=== PATIENT | male | born 1960 | race Caucasian/White ===

== ENCOUNTER 2019-07-14 15:11 | Inpatient (IN) | payer OTHER ==
[~2019-07-14] VITALS: Ht 172.7 cm; Wt 79.4 kg
[2019-07-14 15:23] VITALS: Ht 172.7 cm; Wt 79.4 kg
--- NOTE | 2019-07-14 15:28 | NUR ---
AGENCY DOCUMENTATION DONE BY Staff Name/Title - : ASTER MOLINA JR/[employer] User ID - : [id number] Agency Name - : [employer] Time Documented - From - : 699 To - : 1929
--- NOTE | 2019-07-14 15:29 | NUR ---
ASSUMED PATIENT CAER, NURSING ASSESSMENT COMPLETED.
[2019-07-14 16:05] LABS: BASOPHIL % 0.3 % (0-2); PLATELET COUNT 275 x10^3mcL (130-400); RED CELL DISTRIBUTION WIDTH 13.4 % (11.5-14.5)
[2019-07-14 16:17] LABS: CALCIUM 8.7 mg/dL (8.5-10.1); CHLORIDE SERUM 105 mmol/L (98-107); CREATININE SERUM 0.8 mg/dL (0.7-1.3); GFR1 > 60 mL/min; GLUCOSE SERUM 101 mg/dL (74-106); SODIUM SERUM 141 mmol/L (136-145)
[2019-07-14 16:21] LABS: ALBUMIN 3.7 g/dL (3.4-5.0); ALKALINE PHOSPHATASE 64 U/L (46-116); ALT/SGPT 22 U/L (16-63); AST/SGOT 16 U/L (15-37); BILIRUBIN TOTAL 0.2 mg/dL (0.20-1.00); HDL CHOLESTEROL 38 mg/dL (40-60); LIPASE 75 IU/L (73-393); TOTAL PROTEIN, SERUM 7.7 g/dL (6.4-8.2); TRIGLYCERIDES 47 mg/dL (<150)
[2019-07-14 16:22] LABS: CHOLESTEROL 103 mg/dL (<200); CHOLESTEROL/HDL RATIO 2.7
[2019-07-14 16:29] LABS: FREE T4 1.14 ng/dL (0.76-1.46); FREE THYROXINE INDEX 2.5 ug/dL (1.4-4.5); T4(THYROXINE) 7.1 ug/dL (4.7-13.3)
[2019-07-14 16:30] LABS: T3 TOTAL 1.21 ng/mL
[2019-07-14 17:19] LABS: microscopic required? NO
[2019-07-14 17:33] LABS: UA SPECIFIC GRAVITY 1.015 (1.005-1.035); urine erythrocyte NEGATIVE (NEGATIVE)
--- NOTE | 2019-07-14 17:35 | NUR ---
DISPO AND MEDICAL DECISION MAKING, INPATIENT ADMISSION FOR FURTHER MANAGEMENT. PATIENT CARE, REPORT ENDORSED TO JENNIFER, CONTINUITY OF CARE ENDORSED. PATIENT UPDATED ACCORDINGLY.
[2019-07-14 18:05] VITALS: BP 130/89
--- NOTE | 2019-07-14 18:06 | NUR ---
RECEIVED TELEPHONE ORDER FROM DR STOKES FOR ECHOCARDIOGRAM AND ALIYA SCAN TOMORROW 07/15/19 AT 12NOON. NPO FOR BREAKFAST AND NO CAFFEINE DIET.
--- NOTE | 2019-07-14 18:08 | NUR ---
RECEIVED PT FROM ED VIA JONELLE. ORIENTED PT TO ROOM AND SURROUNDINGS. IV NOTED TO RAC PATENT AND INTACT. TELE 12 PLACED ON PT READING SR. INSTRUCTED PT ON THE USE OF CALL LIGHT FOR ASSISTANCE. ENDORSED PT TO PRIMARY NURSE JENNIFER
--- NOTE | 2019-07-14 18:43 | NUR ---
RECEIVED PATIENT FROM ER VIA GUERNEY. PATIENT IS AOX4 , TELE 12 SR 82, MODERATE PULSES NO EDEMA, CTA ON BLF, 100% ON ROOM AIR, C/O CHEST PAIN RADIATING TO L ARM 7/10. PATIENT COMFORTABLE AND VERBALIZED PAIN IS TOLERABLE. WAS LAST MEDICATED AT ER ,MORPHINE 1558PM. ACTIVE BS, VOIDS WITH NO DYSURIA, SKIN DRY AND INTACT, FULL ROM, IV AT RAC . 2 GUARDS AT BEDSIDE. CALL LIGHT WITHIN REACH. BED AT LOWEST POSITION.
--- NOTE | 2019-07-14 19:19 | NUR ---
ENDORSE PATIENT TO [employer]ER NURSE ROS
--- NOTE | 2019-07-14 19:47 | NUR ---
RECEIVED PATIENT IN BED AWAKE, ALERT AND ORIENTED WITH NO C/O CHEST DISCOMFORT AT THIS TIME. BREATHING EASY AND NONLABOR SATTING AT 100% RA. TELE#12 NSR ON MONITOR. ABDOMEN ROUND AND NONTENDER WITH ACTIVE BOWEL SOUNDS. HEPLOCKED TO RAC INTACT. WILL CONTINUE TO MONITOR. CIM OFFICERS AT BEDSIDE.
[2019-07-14 19:54] VITALS: BP 123/82
--- NOTE | 2019-07-14 21:42 | NUR ---
C/O CHESTPAIN AT SCALE OF 8/10 PER PATIENT, MORPHINE 2MG IVP GIVEN PRESCRIBED. WILL CONTINUE TO MONITOR.
--- NOTE | 2019-07-14 22:25 | NUR ---
RELIEF NOTED PER PATIENT AFTER PAIN MEDS WAS GIVEN.
--- NOTE | 2019-07-15 01:41 | NUR ---
APPEAR TO BE SLEEPING THIS TIME, BREATHING EASY AND NOLABOR. CIM OFFICERS AT BEDSIDE.
--- NOTE | 2019-07-15 05:04 | NUR ---
AWAKE C/O CHESTPAIN X2 THE ENTIRE SHIFT AND MEDICATED PRESCRIBED. ALL NEEDS ATTENDED. KEPT ON NPO FOR SCHEDULED FOR STRESS TEST TODAY. WILL ENDORSE CONTINOUS CARE TO AM SHIFT.
[2019-07-15 05:37] VITALS: BP 100/70
[2019-07-15 06:39] LABS: CALCIUM 8.3 mg/dL (8.5-10.1); CARBON DIOXIDE 27.5 mmol/L (21-32); CHLORIDE SERUM 105 mmol/L (98-107); CREATININE SERUM 0.9 mg/dL (0.7-1.3); GFR1 > 60 mL/min; GLUCOSE SERUM 84 mg/dL (74-106); POTASSIUM SERUM 4.2 mmol/L (3.5-5.1); SODIUM SERUM 141 mmol/L (136-145)
[2019-07-15 06:46] LABS: BASOPHIL % 0.4 % (0-2); PLATELET COUNT 236 x10^3mcL (130-400); RED CELL DISTRIBUTION WIDTH 13.8 % (11.5-14.5)
--- NOTE | 2019-07-15 07:15 | NUR ---
RECEIVED PT RESTING IN BED WITH NO C/O ANY DISTRESS. A/O X4. GUARDS AT BEDSIDE. PT NPO AT THIS TIME FOR STRESS TEST PROCEDURE AT 1000. TELE#12 CONNECTED TO PT, DENIES ANY CP OR PRESSURE. RAC INTACT AND PATENT WITH NO REDNESS OR INFLAMMATION. SAFETY PRECAUTIONS IN PLACE, CALL LIGHT WITHIN REACH, WILL MONITOR.
[2019-07-15 09:08] VITALS: BP 133/83
--- NOTE | 2019-07-15 14:19 | NUR ---
MORHINE GIVEN PER EMAR FOR C/O 910 PAIN, WILL REASSESS.
[2019-07-15 17:02] VITALS: BP 111/72
--- NOTE | 2019-07-15 18:23 | NUR ---
CALLED DR OSCAR AND MADE AWARE OF PT STRESS TEST RESULT, CHARGE AWARE.
--- NOTE | 2019-07-15 18:30 | NUR ---
MORPHINE GIVEN FOR C/O 03/28 PAIN, WILL REASSESS.
--- NOTE | 2019-07-15 18:46 | NUR ---
PT STABLE WITH NO DISTRESS NOTED. A/O X4 WITH NO CORONADO OR DIZZINESS. TELE#12 CONNECTED TO PT, DENIES CP OR PRESSURE AT THSI TIME. LUNGS CTAB. RAC INTACT AND PATENT WITH NO REDNESS OR INFLAMMATION NOTED. SAFETY PRECAUTIONS IN PLACE, CALL LIGHT WITHIN REACH, GUARD AT BEDSIDE, WILL ENDORSE TO NIGHT NURSE.
[2019-07-15 20:03] VITALS: BP 90/74
--- NOTE | 2019-07-15 20:17 | NUR ---
PT RECIEVED AAO REG RESP NO SOB V/S STABLE,KEPT CLEAN AND DRY TO TOUCH,PT RESTING AT THIS TIME,PT ON TELE MONITOR AND IN NSR NO ECTOPY OR CHEST PAIN AT THIS TIME,CALL LIGHT EASY REACHED AND WILL CONTINUE TO MONITOR.
--- NOTE | 2019-07-16 02:30 | NUR ---
PT SLEEPING SOUNDLY AND WILL CONTINUE TO MONITOR.
[2019-07-16 05:38] VITALS: BP 115/78
--- NOTE | 2019-07-16 06:42 | NUR ---
PT HAD A RESTING NIGHT NO CHANGE AT THIS TIME WILL CONTINUE TO MONITOR.
--- NOTE | 2019-07-16 07:30 | NUR ---
PATIENT IS AAOX4. PATIENT IN BED, NO ACUTE RESPIRATORY DISTRESS NOTED. PATIENT IS COMPLAINING OF LEFT UPPER CHEST PAIN THAT RADIATES BELOW THE LEFT SHOULDER. REASSURED PATIENT THAT PAIN MEDICATION WILL BE GIVEN AFTER CHECKING THE ORDER. TROP NEGATIVE. IV TO RAC INTACT. NO INFILTRATION NOTED. SAFETY PRECAUTION IN PLACE. CALL LIGHT WITHIN REACH. POLICE AT BEDSIDE. WILL CONTINUE TO MONITOR.
--- NOTE | 2019-07-16 07:35 | NUR ---
PATIENT COMPLAINING OF PAIN 7/10 TO LEFT UPPER CHEST. MORPHINE 2MG IVP GIVEN. PATIENT TOLERATED WELL. WILL CONTINUE TO MONITOR.
[2019-07-16 08:39] VITALS: BP 124/88
--- NOTE | 2019-07-16 09:30 | NUR ---
PATIENT IN BED, WATCHING TV. REMAINS ON ROOM AIR. NO ACUTE RESPIRATORY DISTRESS NOTED. PATIENT STATED TOLERABLE UPPER LEFT CHEST PAIN AND STATED HE WILL WAIT FOR NEXT DOSE OF MORPHINE. IV INTACT AND PATENT. NO INFILTRATION NOTED. SAFETY PRECAUTION IN PLACE. POLICE AT BEDSIDE. WILL CONTINUE TO MONITOR.
--- NOTE | 2019-07-16 10:05 | NUR ---
PATIENT IS COMPLAINING OF NUMBNESS TO FACE AND LEFT ARM, WELL TREMORS TO LEFT ARM. DR. OSCAR IS INFORMED REGARDING THE SITUATION AND HISTORY OF PATIENT BRAIN LESION. DR. OSCAR ORDERED CT HEAD WITHOUT CONTRAST, AND ATIVAN 2MG IVP Q4PRN. VITAL SIGNS ARE BP 162/102, 113 BPM HR, 18 RESP, 100% [address] TO FOLLOW UP WITH CT HEAD ORDER IMMEDIATELY. WILL CONTINUE TO MONITOR.
--- NOTE | 2019-07-16 10:40 | NUR ---
PATIENT IS ANXIOUS AND HAVING TREMORS TO LEFT ARM. ATIVAN 2MG IVP GIVEN. PATIENT TOLERATED WELL, WILL CONTINUE TO MONITOR.
--- NOTE | 2019-07-16 10:49 | NUR ---
PATIENT COMPLAINING OH HEADACHE. OFFERED NORCO MEDICATION, PATIENT REFUSED. PATIENT STATED THAT HE WILL WAIT FOR NEXT DOSE OF MORPHINE IVP. EDUCATED PATIENT THAT MORPHINE IS Q4PRN AND PLAN OF CARE IS TO WEAN PATIENT OFF MORPHINE. PATIENT VERBALIZES UNDERSTANDING. WILL CONTINUE TO MONITOR.
--- NOTE | 2019-07-16 11:11 | NUR ---
PATIENT IS GOING TO CT HEAD WITHOUT CONTRAST VIA WHEELCHAIR WITH MEDICAL TRANSPORT. NO NOTED TREMORS AT THIS TIME. PATIENT IS ALERT AND ORIENTED X4. WILL AWAIT RETURN TO UNIT.
[2019-07-16 11:50] VITALS: BP 107/73
--- NOTE | 2019-07-16 12:15 | NUR ---
PATIENT IN BED SLEEPING. NO C/O PAIN AT THIS TIME. NO ACUTE RESPIRATORY DISTRESS. IV PATENT AND INTACT. NO INFILTRATION NOTED. SAFETY PRECAUTION IN PLACE. CALL LIGHT WITHIN REACH. POLICE AT BEDSIDE. WILL CONTINUE TO MONITOR.
--- NOTE | 2019-07-16 13:09 | NUR ---
SPOKE WITH DR. OSCAR REGARDING RESULTS OF CT-HEAD WITHOUT CONTRAST. NO NEW ORDERS AT THIS TIME. WILL CONTINUE TO MONITOR PATIENT.
[2019-07-16 14:03] VITALS: BP 107/73
--- NOTE | 2019-07-16 14:20 | NUR ---
DISCHARGE INSTRUCTIONS PROVIDED TO PATIENT. PATIENT REFUSED TO SIGN DISCHARGE DOCUMENTS.INFORMED PATIENT THAT DR. OSCAR AND CHARGE NURSE WILL BE INFORMED ABOUT HIS REQUEST TO STAY FOR FURTHER OBSERVATION. WILL CONTINUE TO MONITOR.
--- NOTE | 2019-07-16 14:26 | NUR ---
DR OSCAR INFORMED THAT PATIENT DOES NOT WANT TO BE DISCHARGED BACK BECAUSE HE FEELS IS NOT SAFE. PER DR OSCAR PATIENT IS STABLE FOR DISCHARGE. ATTENDING NURSE JARED MADE AWARE. PATIENT ALSO INFORMED ABOUT DR OSCAR BEING AWARE AND PER DR OSCAR HE IS DISCHARGED TODAY.
--- NOTE | 2019-07-16 14:30 | NUR ---
DISCHARGE PAPERS HANDED OUT TO MATTHEW. MATTHEW STATED THAT HE WILL INFORM TRANSPORT RIGHT AWAY AND WILL LET US KNOW WHEN TRANSPORT HAS ARRIVED TO THE HOSPITAL. PATIENT STILL REFUSES TO SIGN DISCHARGE PAPERS HE FEELS THAT HE IS BEING DISCHARGED TOO SOON. WILL CONTINUE TO MONITOR.
--- NOTE | 2019-07-16 14:32 | NUR ---
PATIENT IS COMPLAINING OF CHEST PAIN AND HEADACHE 02/25. NORCO 7.5MG PO GIVEN. PATIENT TOLERATED WELL. WILL CONTINUE TO MONITOR.
== END 2019-07-16 16:14 | disposition other institution (70) | DRG 313 ==
LOC: ED 15:11 → DU 16:49
PROVIDERS: Specialist; ADMIT Internal Medicine
DX: R07.89 Other chest pain (principal); I25.10 Atherosclerotic heart disease of native coronary artery without angina pectoris; G40.909 Epilepsy, unspecified, not intractable, without status epilepticus; I10 Essential (primary) hypertension; E78.5 Hyperlipidemia, unspecified; I25.2 Old myocardial infarction; Z68.26 Body mass index [BMI] 26.0-26.9, adult; Z88.0 Allergy status to penicillin; Z88.2 Allergy status to sulfonamides; Z88.8 Allergy status to other drugs, medicaments and biological substances; Z95.5 Presence of coronary angioplasty implant and graft; Z79.899 Other long term (current) drug therapy
CPT/HCPCS: 83880; 84439; A9500; G0378; J2060; J2270; J2405; J2785; J7030; Q0092

== ENCOUNTER 2020-09-30 11:23 | Inpatient (IN) | payer OTHER ==
[~2020-09-30] VITALS: Ht 172.7 cm; Wt 83.9 kg
[2020-09-30 11:24] VITALS: Ht 172.7 cm; Wt 83.9 kg
[2020-09-30 12:25] LABS: microscopic required? NO
[2020-09-30 12:31] LABS: BASOPHIL % 0.9 % (0.2-1.5); PLATELET COUNT 260 x10^3mcL (152-348); RED CELL DISTRIBUTION WIDTH 13.6 % (12.1-16.2)
[2020-09-30 12:35] LABS: UA SPECIFIC GRAVITY 1.025 (1.005-1.035)
[2020-09-30 12:36] LABS: urine erythrocyte NEGATIVE (NEGATIVE)
[2020-09-30 12:45] LABS: CALCIUM 8.9 mg/dL (8.5-10.1); CARBON DIOXIDE 28.2 mmol/L (21-32); CHLORIDE SERUM 106 mmol/L (98-107); GFR1 > 60 mL/min; GLUCOSE SERUM 111 mg/dL (74-106); POTASSIUM SERUM 4.1 mmol/L (3.5-5.1); SODIUM SERUM 140 mmol/L (136-145)
[2020-09-30 12:49] LABS: ALBUMIN 3.7 g/dL (3.4-5.0); ALKALINE PHOSPHATASE 80 U/L (46-116); ALT/SGPT 39 U/L (16-63); AST/SGOT 22 U/L (15-37); BILIRUBIN TOTAL 0.51 mg/dL (0.20-1.00); CHOLESTEROL 105 mg/dL (<200); HDL CHOLESTEROL 38 mg/dL (40-60); LIPASE 65 IU/L (73-393); TOTAL PROTEIN, SERUM 6.9 g/dL (6.4-8.2)
[2020-09-30 13:01] LABS: AMPHETAMINE QUAL UR NONE DETECTED (See below)
[2020-09-30] MEDS ORDERED: ELA50 PO (15:02)
[2020-09-30] MEDS ORDERED: CARVEDILOL12.5 M1 (15:03)
[2020-09-30] MEDS ORDERED: ASPIRIN ADULT L81 M5 (15:03)
[2020-09-30] MEDS ORDERED: GOOD SENSE PAI650 MG (15:03)
[2020-09-30] MEDS ORDERED: AMLODIPINE BESY10 M2 (15:03)
[2020-09-30] MEDS ORDERED: ATORVASTATIN CA40 M1 (15:04)
[2020-09-30] MEDS ORDERED: PANTOPRAZOLE SO40 M1 (15:04)
[2020-09-30] MEDS ORDERED: RANEXA500 M2 (15:04)
[2020-09-30] MEDS ORDERED: HYD25 (15:04)
[2020-09-30 17:11] VITALS: BP 148/90
[2020-09-30 17:41] LABS: CHOLESTEROL/HDL RATIO 2.8
[2020-09-30 21:44] VITALS: BP 118/80
[2020-10-01] VITALS (8 sets, daily range): BP systolic 113–135; BP diastolic 72–82
[2020-10-01 07:20] LABS: BASOPHIL % 0.4 % (0.2-1.5); PLATELET COUNT 248 x10^3mcL (152-348); RED CELL DISTRIBUTION WIDTH 13.5 % (12.1-16.2)
[2020-10-01 07:47] LABS: CALCIUM 8.5 mg/dL (8.5-10.1); CARBON DIOXIDE 26.3 mmol/L (21-32); CHLORIDE SERUM 106 mmol/L (98-107); GFR1 > 60 mL/min; GLUCOSE SERUM 100 mg/dL (74-106); POTASSIUM SERUM 4.3 mmol/L (3.5-5.1); SODIUM SERUM 142 mmol/L (136-145)
[2020-10-02 05:13] VITALS: BP 115/81
[2020-10-02 08:27] VITALS: BP 119/84
[2020-10-02 12:34] VITALS: BP 121/81
[2020-10-02 13:03] VITALS: BP 121/81
[2020-10-02 17:06] VITALS: BP 126/80
== END 2020-10-02 18:35 | DRG 303 ==
LOC: ED 11:23 → DU 14:42 → MU 15:01 → DU 15:57
PROVIDERS: Emergency Medicine; ADMIT Internal Medicine; ATTEND Internal Medicine
DX: I25.119 Atherosclerotic heart disease of native coronary artery with unspecified angina pectoris (principal); I10 Essential (primary) hypertension; D64.9 Anemia, unspecified; I25.2 Old myocardial infarction; E78.00 Pure hypercholesterolemia, unspecified; Z87.891 Personal history of nicotine dependence; K27.9 Peptic ulcer, site unspecified, unspecified as acute or chronic, without hemorrhage or perforation; I67.1 Cerebral aneurysm, nonruptured; Z88.2 Allergy status to sulfonamides; Z88.0 Allergy status to penicillin; Z88.8 Allergy status to other drugs, medicaments and biological substances; Z95.5 Presence of coronary angioplasty implant and graft; E78.5 Hyperlipidemia, unspecified; Z79.82 Long term (current) use of aspirin
CPT/HCPCS: 83880; C9113; G0378; J1885; J2270; J3490